=== PATIENT | male | born 1955 | race Caucasian/White ===

== ENCOUNTER 2018-10-23 08:57 | Emergency (ER) | payer SELFPAY ==
[2018-10-23] MEDS ORDERED: oxyCODONE/Acetamin 5/325 MG* TAB PO ONE (10:19)
--- NOTE | 2018-10-23 10:19 | ED ---
Complex/Multi-Sys Presentation - HPI Summary HPI Summary: This patient is a 63 year old M presenting to [facility] with a chief complaint of back and RLE pain since this morning after falling down a set off stairs while visiting his daughter. The pain is rated as an 8/10. Patient reports low back and RLE pain after stubbing his ankle and falling down the 6 stairs. He grabbed the railing and twisted his back, causing pain to travel through his lower back and R LE. He denies urinary or fecal dysfunction. The patient denies any other associated symptoms, and refuses to receive any imagining. The patient reported only wanting pain medications. The pain is alleviated by nothing, aggravated by movement. - History Of Current Complaint Chief Complaint: EDBackInjuryPain Time Seen by Provider: 10/23/18 10:12 Hx Obtained From: Patient Onset/Duration: Sudden Onset, Lasting Hours - this morning Timing: Constant Severity Currently: Severe Severity Initially: Severe Location: Pain At: - R LE and LB Aggravating Factor(s): Movement Alleviating Factor(s): None Associated Signs And Symptoms: Positive: Back Pain, Other - R Lower Extremity pain endorsed; denies urinary or fecal dysfunction - Allergies/Home Medications Allergies/Adverse Reactions: Allergies Allergy/AdvReac Type Severity Reaction Status Date / Time No Known Allergies Allergy Verified 10/23/18 09:01 PMH/Surg Hx/FS Hx/Imm Hx Previously Healthy: No Endocrine/Hematology History: Denies: Hx Diabetes Respiratory History: Denies: Hx Asthma Musculoskeletal History: Reports: Hx Back Problems - Chronic LBP - Surgical History Other Surgical History: None Infectious Disease History: No Infectious Disease History: Denies: Traveled Outside the [place] in Last 30 Days - Family History Known Family History: Negative: Hypertension, Diabetes - Social History Alcohol Use: None Hx Substance Use: No Substance Use Type: Reports: None Hx Tobacco Use: No Smoking Status (MU): Never Smoked Tobacco Review of Systems Negative: Fever Genitourinary: Other - denies urinary or fecal dysfunction Positive: Other - Low back pain and R LE pain All Other Systems Reviewed And Are Negative: Yes Physical Exam - Summary Physical Exam Summary: VITAL SIGNS: Reviewed. GENERAL: Patient is a well-developed and nourished MALE who is in distress secondary to pain, can ambulate on his own. Patient is not in any acute respiratory distress. HEAD AND FACE: No signs of trauma. No ecchymosis, hematomas or skull depressions. No sinus tenderness. EYES: PERRLA, EOMI x 2, No injected conjunctiva, no nystagmus. EARS: Hearing grossly intact. Ear canals and tympanic membranes are within normal limits. MOUTH: Oropharynx within normal limits. NECK: Supple, trachea is midline, no adenopathy, no JVD, no carotid bruit, no c- spine tenderness, neck with full ROM. CHEST: Symmetric, reproducible tenderness LUNGS: Clear to auscultation bilaterally. No wheezing or crackles. CVS: Regular rate and rhythm, S1 and S2 present, no murmurs or gallops appreciated. ABDOMEN: Soft, non-tender. No signs of distention. No rebound no guarding, and no masses palpated. Bowel sounds are normal. EXTREMITIES: FROM in all major joints, no edema, no cyanosis or clubbing. NEURO: Alert and oriented x 3. No acute neurological deficits. Speech is normal and follows commands. SKIN: Dry and warm Triage Information Reviewed: Yes Vital Signs On Initial Exam: Initial Vitals Temp Pulse Resp BP Pulse Ox 97.4 F 66 18 164/79 96 10/23/18 08:59 10/23/18 08:59 10/23/18 08:59 10/23/18 08:59 10/23/18 08:59 Vital Signs Reviewed: Yes Diagnostics - Vital Signs Vital Signs Temp Pulse Resp BP Pulse Ox 10/23/18 08:59 97.4 F 66 18 164/79 96 - Laboratory Lab Statement: Any lab studies that have been ordered have been reviewed, and results considered in the medical decision making process. Complex Multi-Symp Course/Dx Assessment/Plan: Patient is a 63-year-old male who presents to the emergency department with chief complaint of lower back pain when he slipped and twisted his back. Patient has history of chronic back pain. The patient is able to ambulate with good steady walk with some pain. Patient denies any urinary or fecal dysfunction. Physical exam the patient has paraspinal muscle tenderness in the lumbar spine in both sides. Also he has tenderness in the thigh and the posterior aspect of the thigh. The patient declined any images he only wants pain medication. Therefore the patient was given a Percocet in the ER. He will be given a prescription for Percocet and Robaxin. Patient was instructed to return to the emergency department if he develops increasing pain, any urinary or fecal dysfunction, and he develops any other symptom. The patient understands and agrees. - Diagnoses Provider Diagnoses: Lumbar spine pain, Lumbar back pain Discharge - Sign-Out/Discharge Documenting (check all that apply): Patient Departure - discharge Patient Received Moderate/Deep Sedation with Procedure: No - Discharge Plan Condition: Stable Disposition: HOME Prescriptions: Methocarbamol TAB* [Robaxin 500 MG TAB*] 500 mg PO TID PRN #12 tab PRN Reason: Pain oxyCODONE/Acetamin 5/325 MG* [Percocet 5/325 TAB*] 1 tab PO Q6H PRN #12 tab MDD 4 PRN Reason: Pain Patient Education Materials: Back Pain (ED) Referrals: [facility] [Outside] Additional Instructions: FOLLOW UP WITH YOUR PRIMARY CARE PROVIDER WITHIN 3 DAYS. RETURN TO THE ED FOR ANY WORSENING OR NEW SYMPTOMS. - Billing Disposition and Condition Condition: STABLE Disposition: Home - Attestation Statements Document Initiated by Radhaibe: Yes Documenting Scribe: William Carlson Provider For Whom Bouchra is Documenting (Include Credential): Aayush Victor MD Scribe Attestation: William Zheng, scribed for Aayush Victor MD on 10/25/18 at 1139. Scribe Documentation Reviewed: Yes Provider Attestation: The documentation as recorded by the William flynn accurately reflects the service I personally performed and the decisions made by Aayush guevara MD Status of Scribe Document: Viewed
[2018-10-23 10:39] VITALS: BP 146/80
== END 2018-10-23 10:38 | disposition home or self-care (01) ==
LOC: ED 08:57
DX: M54.5 Low back pain (principal); M79.651 Pain in right thigh; G89.29 Other chronic pain
CPT/HCPCS: 99282; A9270-GY